=== PATIENT | male | born 1995 | race Two or more races ===

== ENCOUNTER 2020-04-18 22:33 | Emergency (ER) | payer OTHER ==
[~2020-04-18] VITALS: Ht 167.6 cm; Wt 72.6 kg
--- NOTE | 2020-04-18 22:41 | NUR ---
PATIENT CAME TO ER BED 11 C/O TAKING 30MG OF PERCOCET "I DON'T KNOW WHY I TOOK IT, I ALSO SMOKED SOME WEED." PER RESCUE AMBULANCE PERSONEL PATIENT WAS NOT RESPONDING TO VERBAL COMMANDS IN AMBULANCE, PATIENT RECEIVED 2MG OF IV NARCAN AND WAS ORIENTED AND AWAKE. PT IS CURRENTLY AAOX4. NO SOB. BREATHING EVENLY AND UNLABORED ON ROOM AIR. CONNECTED TO THE MONITOR.
[2020-04-18 22:43] VITALS: BP 131/67
--- NOTE | 2020-04-18 23:22 | NUR ---
PATIENT STATES THAT HE WANTS TO LEAVE TO GO WITH HIS FRIENDS.
--- NOTE | 2020-04-18 23:26 | NUR ---
IV removed. Catheter intact and site benign. Pressure and 4x4 applied to site. No bleeding noted.
--- NOTE | 2020-04-18 23:27 | NUR ---
MD IS NOTIFIED OF PATIENT'S INTENT TO LEAVE HOSPITAL AGAINST MEDICAL ADVICE.
--- NOTE | 2020-04-18 23:27 | NUR ---
Patient does not wish to proceed with medical care recommended by Dr. Wiseman. Patient given information related to possible complications, up to and including , which could occur as a result of leaving the hospital at this time. Patient verbalizes understanding of risks involved due to leaving against medical advice. Patient has signed AMA form.
== END 2020-04-18 23:27 | disposition home or self-care (01) ==
LOC: ER 22:36
DX: T40.601A Poisoning by unspecified narcotics, accidental (unintentional), initial encounter (principal); F17.200 Nicotine dependence, unspecified, uncomplicated; Y92.89 Other specified places as the place of occurrence of the external cause